=== PATIENT | male | born 1965 | race Caucasian/White ===

== ENCOUNTER 2020-02-27 20:50 | Observation (INO) | payer OTHER ==
[~2020-02-27] VITALS: Ht 188 cm; Wt 95.3 kg
[2020-02-27 23:24] VITALS: BP 118/84
[2020-02-27 23:26] VITALS: BP 118/84
[2020-02-27 23:43] VITALS: BP 118/84
[2020-02-28 05:20] VITALS: BP 104/70
[2020-02-28 08:01] VITALS: BP 111/82
[2020-02-28 08:09] VITALS: BP 111/82
[2020-02-28] MEDS ORDERED: ASPIRIN 81 MG CHEW TAB PO SCH (10:30)
[2020-02-28 11:06] LABS: BASOPHILS % 0.7 % (0.0-1.0); EOSINOPHILS # (AUTO) 0.1 (0.0-0.4); EOSINOPHILS % 1.5 % (0.0-6.0); LYMPHOCYTES % 17.6 % (18.0-39.1); MEAN CORPUSCULAR HEMOGLOBIN 29.5 pg (28-32); MEAN CORPUSCULAR HGB CONC 33.3 g/dL (31-35); MEAN CORPUSCULAR VOLUME 88.4 fL (81-99); MONOCYTES # (AUTO) 0.5 (0.2-0.8); MONOCYTES % 9.8 % (4.4-11.3); NEUTROPHILS # (AUTO) 3.7 (2.1-6.9); NEUTROPHILS % 67.5 % (38.7-80.0); PLATELET COUNT 444 x10e3/uL (140-360); RED BLOOD COUNT 5.09 x10e6/uL (4.3-5.7); RED CELL DISTRIBUTION WIDTH 12.2 % (11.7-14.4)
[2020-02-28 11:28] LABS: ALANINE AMINOTRANSFERASE 50 IU/L (0-55); ALBUMIN 3.5 g/dL (3.5-5.0); ALBUMIN/GLOBULIN RATIO 1.1 (0.8-2.0); ALKALINE PHOSPHATASE 64 IU/L (40-150); ANION GAP 11.3 mmol/L (8-16); BLOOD UREA NITROGEN 12 mg/dL (7-26); BUN/CREATININE RATIO 16 (6-25); CALCIUM 8.7 mg/dL (8.4-10.2); CARBON DIOXIDE 26 mmol/L (22-29); CHLORIDE 107 mmol/L (98-107); CHOLESTEROL 194 MD/DL (0-199); CREATININE, SERUM 0.76 mg/dL (0.72-1.25); EST GLOMERULAR FILTRATION RATE > 60 ML/MIN (60-); GLUCOSE 91 mg/dL (74-118); HDL CHOLESTEROL 39 MG/DL (40-60); LDL CHOLESTEROL 126 MG/DL (60-130); POTASSIUM 4.3 mmol/L (3.5-5.1); SODIUM 140 mmol/L (136-145); TRIGLYCERIDES 144 MG/DL (0-149)
[2020-02-28 11:35] VITALS: BP 116/87
[2020-02-28] MEDS ORDERED: LIPITOR10 MG PO (14:23)
[2020-02-28] MEDS ORDERED: ASPIRIN CHEW81 MG PO (14:23)
[2020-02-28] MEDS ORDERED: ELIQUIS2.5 MG PO (14:23)
[2020-02-28 15:00] VITALS: BP 107/78
[2020-02-28] MEDS ORDERED: APIXAB 2.5 MG TABLET PO SCH (17:00)
== END 2020-02-28 17:07 | disposition home or self-care (01) ==
LOC: MED/SURG 21:27
PROVIDERS: ADMIT Internal Medicine; ATTEND Internal Medicine
DX: B94.8 Sequelae of other specified infectious and parasitic diseases (principal); R51.9 Headache, unspecified; R41.82 Altered mental status, unspecified; Z20.822 Contact with and (suspected) exposure to COVID-19
CPT/HCPCS: 36415; 70551; 80053; 80061; 83036; 84443; 85025; 93306; 93880; G0378